=== PATIENT | female | born 1965 | race Caucasian/White ===

== ENCOUNTER 2022-02-09 12:59 | Emergency (ER) | payer BC, SELFPAY ==
[2022-02-09 13:12] VITALS: BP 147/102; PULSE 102; RESP 21; TEMP 36.8
[2022-02-09 13:27] VITALS: BP 147/102; PULSE 105; RESP 16; O2SAT 98
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
--- NOTE | 2022-02-09 13:57 | XR_ITS ---
WS: [id number] Exam: XR hip LT 2-3V wo/w pel* [id number] Date/Time of Exam: 02/09/2022 2:00 PM Reason For Exam: trauma No fracture or dislocation. Minimal DJD of the acetabulum. Normal soft tissues. XR/XR hip LT 2-3V wo/w pel* [id number] IMPRESSION: 1. No fracture or dislocation.
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
[2022-02-09 14:47] VITALS: RESP 18
[2022-02-09] MEDS: morphine 4 mg/mL SDV 1 mL IVP (14:47)
[2022-02-09] MEDS: ondansetron 2 mg/ML SDV 2 mL 4 MG IVP (14:47)
[2022-02-09] MEDS: iohexol 350 mg/mL 500 mL Btl (per mL) IV (14:49)
[2022-02-09 15:03] LABS: Add Urine Microscopic? YES; Bilirubin Urine Neg (Negative); Blood Urine 2+ (Negative); Glucose Urine UA Norm (Normal); Ketones Urine Negative (Negative); Leukocyte Esterase Urine Trace (Negative); Nitrate Urine Negative (Negative); Protein Urine Trace (Negative); Specific Gravity, Urine 1.025 (1.005-1.030); Squamous Epithelial Cell Urine 0-4 /hpf (0-5); Urine Appearance Clear (CLEAR); Urine Color Yellow (Yellow); Urobilinogen Urine Neg (Negative); pH Urine 5 (5-7)
[2022-02-09 15:04] LABS: Add Urine Culture? Yes; Amorphous Sediment Urine 1+ /hpf; Fine Granular Casts Urine 0-4 /lpf; Hyaline Casts Urine 0-4 /lpf
[2022-02-09 15:19] LABS: Basophils # 0.1 10^3/uL (0.0-0.1); Basophils % 0.4 %; Eosinophils % 0.2 %; Hematocrit 38.2 % (37.0-47.0); Hemoglobin 12.1 g/dL (11.5-15.3); Lymphocytes # 0.7 10^3/uL (0.8-4.8); Lymphocytes % 5.2 %; Mean Corpuscular HGB Conc 31.7 g/dL (30.0-36.0); Mean Corpuscular Hemoglobin 27.3 pg (28.0-34.0); Mean Corpuscular Volume 86.2 fl (81-99); Mean Platelet Volume 10.8 fL (7.4-10.4); Monocytes # 0.7 10^3/uL (0.2-0.9); Monocytes % 5.4 %; Neutrophils # 11.56 10^3/uL (1.8-7.7); Neutrophils % 87.5 %; Nucleated Red Blood Cells % 0 %; Platelet Count 229 10^3/cmm (130-400); Red Blood Count 4.43 10^6/uL (4.1-5.3); Red Cell Distribution Width 13.2 % (12.1-15.1); White Blood Count 13.2 10^3/uL (4.0-10.0)
[2022-02-09 15:39] LABS: Alanine Aminotransferase 118 U/L (0-33); Albumin Level 3.7 g/dL (3.5-5.2); Alkaline Phosphatase 95 U/L (35-105); Anion Gap 12.8 (5-19); Aspartate Amino Transferase 147 U/L (0-32); Blood Urea Nitrogen 11 mg/dL (6-20); Calcium 8.7 mg/dL (8.5-10.5); Carbon Dioxide 26 mmol/L (22-29); Chloride 101 mmol/L (98-107); Globulin 2.6 g/dL (1.3-4.6); Glomerular Filtration Rate 56.7 mL/min (90-130); Glucose 169 mg/dL (65-115); Osmolality Calculated 285 mOsm/kg (285-295); Potassium 3.8 mmol/L (3.5-5.1); Sodium 136 mmol/L (136-145); Total Bilirubin 0.3 mg/dL (0.15-1.2); Total Protein 6.3 g/dL (6.6-8.7)
[2022-02-09] MEDS: fentaNYL 50 mcg/mL INJ 2mL IVP (16:55)
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
[2022-02-09 18:52] VITALS: RESP 18
== END 2022-02-09 17:55 ==
PROVIDERS: Emergency Provider Family Medicine
DX: S42.292A Other displaced fracture of upper end of left humerus, initial encounter for closed fracture (principal); S36.893A Laceration of other intra-abdominal organs, initial encounter; I10 Essential (primary) hypertension; V89.2XXA Person injured in unspecified motor-vehicle accident, traffic, initial encounter
CPT/HCPCS: 36415; 70450; 71260; 72125; 73060; 73502; 74177; 80053; 81001; 85025; 86850; 86900; 87086; 96365; 96375; 99285; J2270; J2405; J3010; Q9967